=== PATIENT | male | born 1985 ===

== ENCOUNTER 2020-04-29 14:33 | Outpatient (CLI) | payer OTHER ==
[2020-04-29 15:52] VITALS: BP 130/91
--- NOTE | 2020-04-29 15:52 | SLEEP CARE CONSULTATION ---
Information from patient questionnaire entered by Flavia Serrano. I have reviewed and concur with the information entered by Flavia Serrano. This document represents the service I personally performed and the decisions made by me, Mily Wade ARNP. History of Present Illness Service Date and Time: 04/29/2020 1433 Reason for Visit: New patient Chief Complaint: reports: Unrefreshed sleep, Snoring, Excessive daytime sleepiness, Fatigue Date of Onset: 2 years Usual bedtime: 9 PM Time it takes to fall asleep: 5 minutes Snores at night: Yes Sleeps alone due to snoring: No Number of times waking at night: 0 Reasons for waking at night: reports: Snoring, Bathroom Toss, Turn, or Twitch while sleeping: Yes Recalls having dreams: No Usually gets out of bed at: 6 AM Feels refreshed in the morning: No Morning headache: Yes (1-2 times a month) Sleepy or fatigued during the day: Yes Ever fallen asleep while driving: No Takes day naps: Yes (he usually takes nap every other day; sleeps about 30-60 mins) Dreams during day naps: No Prior sleep studies: No Additional HPI information: I had the pleasure of seeing LOGAN STEVENS today regarding the possibility of him having a sleep disorder. His current complaints are unrefreshed sleep, snoring, excessive daytime sleepiness and fatigue. He has excessive tiredness during the day. He is not waking up refreshed. His has been pushing him to come in due to his loud snoring and states she can hear it from another room so she does not sleep separate from him. He feels he should not be this tired all the time. He has to drink a lot of caffeine drinks to keep awake and moving during the day. - Parasomnia Symptoms Ever been unable to move upon waking from sleep: Yes Walks in sleep: Yes (rarely) Talks in sleep: Yes Ever acted out dreams in sleep: Yes Ever felt weak in the knees when startled or emotional: No Bothered by creepy, crawly, restless sensations in legs: No Problems with memory or concentration: No Subjective Initial [place] Sleepiness Scale score: 10 (in 2020) Past Medical History Past Medical History: reports: Other (carpal tunnel). denies: Hypertension, Diabetes, Arrythmia, Anxiety, Depression, Mood disorder, GERD Social History The patient's occupation is active duty in the [employer]. Patient is and lives in [place]. Have you smoked in the past 12 months: Yes Cigarettes per day (20/pack): 10 Years of smokin Smoking Pack Years: 7.5 Alcohol use: Yes Alcohol amount and frequency: 2 drinks, less than twice monthly Caffeine use: Yes Caffeine amount and frequency: way too much Family History Family history of sleep disordered breathing: No Allergies and Home Medications Drug allergies reviewed: Yes (NKDA) Home medication list reviewed: Yes (Ibuprofen, prn for carpal tunnel) Review of Systems Cardiovascular: denies: high blood pressure Gastrointestinal: denies: heartburn, difficulty swallowing Neurological: denies: headaches, seizure, head trauma Psychiatric: denies: anxiety, depression, mood disorder Ear/Nose/Throat: reports: injury to nose (injury to nose when child; had septoplasty after difficulty breathing from nose in 2009). denies: tonsillectomy Physical Exam Blood Pressure: 130/91 Cuff size: wrist Heart Rate: 75 O2 Saturation: 97 Height: 6 ft 3 in Weight: 261 lb Body Mass Index: 32.6 BMI Classification: Obese Neck circumference: 18.30 (inches) Nostrils: partially obstructed Turbinates: swollen Septum: deviated right Mouth and throat: narrow oropharynx Uvula visualization: 50% Mallampati Class II Tongue: enlarged in size with teeth gallardo on lateral edges Tonsils: 2+ Chin and jaw: normal size and position Neck: normal w/o lymphadenopathy or thyromegaly Heart: regular rate and rhythm Lungs: clear bilaterally Impression and Plan 1. Suspected Obstructive Sleep Apnea-Hypopnea Syndrome, as suggested by a history of loud and irregular snoring, morning headache, unrefreshed sleep, and excessive daytime sleepiness. Narrow oropharynx and obesity are common predisposing factors for obstructive sleep apnea-hypopnea syndrome. I recommend proceeding to polysomnography to confirm the diagnosis and to assess severity. If the patient has significant sleep disordered breathing, a manual CPAP titration study will also be performed to find the optimal treatment pressure. I informed the patient of what the sleep studies involve and after some discussion, obtained agreement to proceed. The pathophysiology of obstructive sleep apnea-hypopnea syndrome was discussed with the patient and health risks of cardiovascular and cerebrovascular disease if not treated. AASM brochure for obstructive sleep apnea-hypopnea syndrome given and reviewed. Risks of drowsy driving discussed in detail and patient advised to avoid long distance driving and to pack puller at the first sign of drowsiness. Patient agreed to plan. * Schedule polysomnography +- manual CPAP titration study and return in 1-2 weeks after the study to discuss result and initiate therapy. * Avoid long distance driving or driving when feeling sleepy. * Avoid alcohol, sedative and muscle relaxant around bedtime. * Attempt to lose weight. * Review instructions provided by trained office staff on how to prepare for the sleep study. * Return for follow-up after sleep study completed. Counseling Topics: Weight loss health impact Visit Type: In Office Time Spent with Patient (minutes): 30 Provider Statement: I spent 100% of the Face to Face Visit with the patient with greater than 50% spent counseling the patient and coordination of care.
== END 2020-04-29 14:34 | disposition home or self-care (01) ==
LOC: SC 14:33
PROVIDERS: ATTEND Nurse Practitioner Family
DX: R06.83 Snoring (principal); R51.9 Headache, unspecified; G47.8 Other sleep disorders; G47.10 Hypersomnia, unspecified; E66.9 Obesity, unspecified; Z68.32 Body mass index [BMI] 32.0-32.9, adult
CPT/HCPCS: 99203; 99212

== ENCOUNTER 2020-06-24 21:22 | Emergency (ER) | payer OTHER ==
--- NOTE | 2020-06-24 22:03 | XRAY Report ---
PROCEDURE: Ankle 3 View RT INDICATIONS: injury to R ankle/stepped in hole, swollen R ankle TECHNIQUE: 3 views of the ankle were acquired. COMPARISON: None. FINDINGS: Bones: No fractures or dislocations. Ankle mortise is normally aligned. No suspicious bony lesions . Soft tissues: No tibiotalar joint effusion. Achilles tendon appears normal. Swelling at the lateral malleolus. IMPRESSION: No acute osseous abnormality. Reviewed by: Maury Quiroz MD on 06/24/2020 10:02 PM PDT Approved by: Maury Quiroz MD on 06/24/2020 10:02 PM PDT Station ID: [id number]
[2020-06-25 01:23] VITALS: BP 133/87
--- NOTE | 2020-06-26 11:49 | ED Physician Documentation ---
History of Present Illness - Stated complaint Stated Complaint: R ANKLE INJ - Chief complaint Chief Complaint: Trauma Ext - History obtained from History obtained from: Patient - Additonal information Additional information: 35yM presents with R ankle pain s/p trip and fall into a lower part of ground, twisting it. sudden onset constant pain, concentrated in the lateral ankle, nonradiating, moderate severity, worse with rom of the ankle. patient was able to bear partial weight initially and now. no other injury. minimal to mild swelling. Review of Systems Skin: denies: Lesions, Abrasion (s), Laceration (s) Musculoskeletal: reports: Extremity pain, Joint pain Neurologic: denies: Focal weakness, Numbness PD PAST MEDICAL HISTORY - Past Medical History Past Medical History: No - Past Surgical History Past Surgical History: Yes HEENT: Other Derm: Skin cancer surgery - Present Medications Home Medications: Ambulatory Orders Medication Instructions Recorded Confirmed No Known Home Medications 06/24/20 06/24/20 - Allergies Allergies/Adverse Reactions: Allergies Allergy/AdvReac Type Severity Reaction Status Date / Time No Known Drug Allergies Allergy Verified 06/24/20 21:36 - Social History Does the pt smoke?: Yes Smoking Status: Current every day smoker PD ED PE NORMAL - Vitals Vital signs reviewed: Yes - General General: Alert and oriented X 3, No acute distress, Well developed/nourished - Derm Derm: Normal color, Warm and dry - Extremities Extremities: No deformity, Other (FROM but tender with rom of R ankle. nontender to lateral or medial malleolus or fifth metatarsal. discomfort to palpation along lateral ankle in a tendinous distribution. 2+ DP and PT pulses, sensation and strength intact.) - Neuro Neuro: Alert and oriented X 3 Results - Vitals Vitals: Oxygen O2 Source Room air PD MEDICAL DECISION MAKING - ED course ED course: 35yM presents with likely ankle sprain. low suspicion of fracture given xray and clinical exam. splint and crutches supplied. return precautions given. [place] Departure - Departure Disposition: 01 Home, Self Care Clinical Impression: Ankle sprain Condition: Good Instructions: ED RICE Follow-Up: Chris Stoll MD [Provider Admit Priv/Credential] - Comments: You were seen in the emergency department for ankle pain.Does not look like you have a break in the bone. Please return to emergency department if you have any new or worsening symptoms. Follow-up with orthopedics in 1 week. Discharge Date/Time: 06/24/20 23:25
== END 2020-06-24 23:25 | disposition home or self-care (01) ==
LOC: ED 21:22
DX: S93.401A Sprain of unspecified ligament of right ankle, initial encounter (principal); W01.0XXA Fall on same level from slipping, tripping and stumbling without subsequent striking against object, initial encounter; X50.1XXA Overexertion from prolonged static or awkward postures, initial encounter; Y93.89 Activity, other specified; F17.200 Nicotine dependence, unspecified, uncomplicated
CPT/HCPCS: 99282; 99283

== ENCOUNTER 2020-09-16 19:20 | Outpatient (CLI) | payer OTHER | END 2020-09-16 19:21 | disposition home or self-care (01) | LOC: SC 19:20 | PROVIDERS: ATTEND Nurse Practitioner Family | DX: R06.83 Snoring (principal); R53.83 Other fatigue; G47.8 Other sleep disorders; G47.10 Hypersomnia, unspecified; E66.9 Obesity, unspecified; Z68.33 Body mass index [BMI] 33.0-33.9, adult | CPT/HCPCS: 95810 ==

== ENCOUNTER 2020-09-30 15:30 | Outpatient (CLI) | payer OTHER ==
--- NOTE | 2020-09-30 16:13 | SLEEP CARE CONSULTATION ---
Information from patient questionnaire entered by Flavia Serrano. I have reviewed and concur with the information entered by Flavia Serrano. This document represents the service I personally performed and the decisions made by , Mily Wade ARNP. History of Present Illness Service Date and Time: 09/30/2020 1530 Initial [place] Sleepiness Scale score: 10 (in 2020) Current [place] Sleepiness Scale score: 14 Additional HPI information: LOGAN STEVENS returns for follow up and results of the recently performed polysomnography. The patient was informed of the following findings: Patient had no significant sleep disordered breathing with an average AHI 2.9 and a farhana oxygen saturation of 90%. I explained the pathophysiology behind obstructive sleep apnea. Patient does not have sleep apnea and was advised how weight gain could increase the risk of developing sleep apnea in the future. I strongly encouraged the patient to lose weight. Patient has light to loud snoring. Snoring can be reduced by weight loss. Weight loss is best achieved with diet consult. Patient instructed to contact PCP for referral. Snoring can also be treated with an oral appliance from a dentist. Advised to check insurance coverage. In addition, an ENT evaluation can be do to see if other treatment is indicated. Patient counseled not drink alcohol less than 4 hours before bedtime as it can increase snoring and apnea. Patient was cautioned about risks of drowsy driving until sleepiness symptoms resolve. Sleep Study - Results Type of Sleep Study: Polysomnography Prior sleep studies: No Polysomnography/Home Sleep Study results: IMPRESSION: The quality of the study is good. The patient had normal sleep efficiency. The sleep architecture was normal as well. Respiratory monitoring showed no significant sleep disordered breathing (AHI = 2.9) or hypoxia (farhana oxygen saturation of 90%). The few respiratory events occurred mainly during supine sleep (supine AHI = 4.7; non-supine = 0.75). Snore was light to loud in intensity. There was no significant periodic leg movement of sleep. Cardiac rhythm was normal sinus rhythm without significant arrhythmia. No abnormal behavior (parasomnia) observed during the night. CONCLUSIONS and RECOMMENDATIONS: 1. This is a normal in-laboratory polysomnography. Clinical correlation advised. Allergies and Home Medications Home medication list reviewed: Yes (no changes) Review of Systems Review of systems same as previous: Yes (no changes) Physical Exam Heart Rate: 73 O2 Saturation: 97 Height: 6 ft 2 in Weight: 265 lb Body Mass Index: 34.0 BMI Classification: Obese Impression and Plan Snoring but no significant sleep disordered breathing. Patient advised that often weight loss will reduce snoring as well as apnea risk. An oral appliance can also be used for snoring. This would require a dental consultation. Patient cautioned not to use other online appliances as can cause bite issues. A list of accredited dentists in [facility] and one local dentist who makes oral appliances is available in the office. Patient is advised to check if insurance will cover. An ENT consult can also be helpful to determine if any other treatment is an option. Patient given a AASM How to Sleep better pamphlet and encouraged to review his sleep hygiene to find ways to improve sleep and reduce daytime sleepiness. Since patient supine AHI was 4.7 he was encouraged to avoid sleeping supine. He voiced understanding. * Attempt to lose weight * Avoid alcohol consumption near bedtime * The patient is cautioned about driving until sleepiness is completely resolved. * Return as needed. Counseling Topics: Weight loss health impact Visit Type: In Office Time Spent with Patient (minutes): 10 Provider Statement: I spent 100% of the Face to Face Visit with the patient with greater than 50% spent counseling the patient and coordination of care.
== END 2020-09-30 15:31 | disposition home or self-care (01) ==
LOC: SC 15:30
PROVIDERS: ATTEND Nurse Practitioner Family
DX: R06.83 Snoring (principal); E66.9 Obesity, unspecified; Z68.34 Body mass index [BMI] 34.0-34.9, adult
CPT/HCPCS: 99212

== ENCOUNTER 2021-01-10 13:41 | Emergency (ER) | payer OTHER ==
[2021-01-10 14:05] VITALS: BP 117/79
[2021-01-10] MEDS ORDERED: diphenhydrAMINE INJ 50 MG/ML VIAL IVP STA (14:35)
[2021-01-10] MEDS ORDERED: SODIUM CHLORIDE 0.9% 1,000 ML IV STA (14:35)
[2021-01-10] MEDS ORDERED: PROCHLORPERAZINE 10 MG/2 ML VIAL IVP STA (14:35)
[2021-01-10] MEDS ORDERED: KETOROLAC 30 MG/ML VIAL IVP STA (14:35)
[2021-01-10] MEDS ORDERED: DEXAMETHASONE 10 MG/ML VIAL IVP STA (14:35)
--- NOTE | 2021-01-10 14:36 | ED Physician Documentation ---
PD HPI HEADACHE - Stated complaint Stated Complaint: HEADACHE - Chief complaint Chief Complaint: Neuro - History obtained from History obtained from: Patient - History of Present Illness Timing - onset: Today Timing - onset during: Rest Timing - duration: Hours Timing - details: Abrupt onset, Still present Location: Front, Right Quality: Throbbing Associated symptoms: Nausea, Vision changes (photophobia). No: Fever, Stiff neck, Vomiting, Weakness, Numbness, Syncope, Seizure, Eye pain Improved by: Rest, Dark room, Quiet Worsened by: Light, Noise, Moving Contributing factors: No: Anticoagulated, Possible carbon monoxide Similar symptoms before: Diagnosis (migraine) Recently seen: Not recently seen - Additional information Additional information: Previously well 35-year-old male has developed a headache behind his right eye and his right latter-day with some nausea has not had vomiting with this he states that he does feel like he has seen an aura with this and he has a history of migraine. He did not have relief with use of ibuprofen. Review of Systems Constitutional: denies: Fever Eyes: denies: Decreased vision Ears: denies: Ear pain Nose: denies: Congestion Throat: denies: Sore throat Cardiac: denies: Chest pain / pressure, Palpitations Respiratory: denies: Dyspnea, Cough GI: reports: Nausea. denies: Abdominal Pain, Vomiting, Constipation, Diarrhea : denies: Dysuria, Frequency Skin: denies: Rash Musculoskeletal: denies: Neck pain, Back pain, Extremity pain Neurologic: reports: Headache. denies: Generalized weakness, Focal weakness, Numbness, Syncope, Seizure, Confused, Head injury, LOC PD PAST MEDICAL HISTORY - Past Medical History Past Medical History: Yes Cardiovascular: None Respiratory: None Neuro: Headaches Endocrine/Autoimmune: None GI: None : None HEENT: None Psych: Depression Musculoskeletal: None Derm: None - Past Surgical History Past Surgical History: Yes HEENT: Other Derm: Skin cancer surgery - Present Medications Home Medications: Ambulatory Orders Medication Instructions Recorded Confirmed Ibuprofen 400 mg PO Q6HR PRN 01/10/21 01/10/21 - Allergies Allergies/Adverse Reactions: Allergies Allergy/AdvReac Type Severity Reaction Status Date / Time No Known Drug Allergies Allergy Verified 01/10/21 13:47 - Social History Does the pt smoke?: Yes Smoking Status: Current every day smoker Does the pt drink ETOH?: No Does the pt have substance abuse?: No - Immunizations Immunizations are current?: Yes PD ED PE NORMAL - Vitals Vital signs reviewed: Yes - General General: Alert and oriented X 3, Well developed/nourished, Other (35-year-old male laying in a darkened room with an ice bag over his head and his eyes closed with a blanket over everything.) - HEENT HEENT: Atraumatic, PERRL, EOMI - Neck Neck: Supple, no meningeal sign, No bony TTP - Cardiac Cardiac: RRR, No murmur - Respiratory Respiratory: No respiratory distress, Clear bilaterally - Abdomen Abdomen: Soft, Non tender - Back Back: No CVA TTP, No spinal TTP - Derm Derm: Normal color, Warm and dry, No rash - Extremities Extremities: No deformity, No edema - Neuro Neuro: Alert and oriented X 3, cashier parking lot 2-12 intact, No motor deficit, No sensory deficit, Normal speech Eye Opening: To Voice Motor: Obeys Commands Verbal: Oriented GCS Score: 14 - Psych Psych: Normal mood, Normal affect Results - Vitals Vitals: Vital Signs - 24 hr 01/10/21 01/10/21 13:48 14:04 Temperature 36 C L 36.6 C Heart Rate 69 74 Respiratory 18 18 Rate Blood Pressure 122/102 H 117/79 O2 Saturation 98 99 Oxygen O2 Source Room air PD MEDICAL DECISION MAKING - ED course Complexity details: reviewed old records, reviewed results, re-evaluated patient, considered differential, d/w patient ED course: 35-year-old male with an acute migraine headache is given a migraine cocktail consisting of a liter of saline 10 mg of dexamethasone 10 mg of Compazine 25 mg of Benadryl and 30 mg of Toradol intravenously. The patient has improvement and he is discharged. Departure - Departure Disposition: 01 Home, Self Care Clinical Impression: Migraine Qualifiers: Migraine type: with aura Status migrainosus presence: without status migrainosus Intractability: not intractable Qualified Code(s): G43.109 - Migraine with aura, not intractable, without status migrainosus Condition: Stable Instructions: ED Headache Migraine Follow-Up: HERNANDEZ Beaulieu [Provider Group] Discharge Date/Time: 01/10/21 16:08
== END 2021-01-10 16:08 | disposition home or self-care (01) ==
LOC: ED 13:41
DX: G43.109 Migraine with aura, not intractable, without status migrainosus (principal); F17.200 Nicotine dependence, unspecified, uncomplicated
CPT/HCPCS: 96374; 96375; 99284; 99285; J1200

== ENCOUNTER 2021-01-17 19:11 | Emergency (ER) | payer OTHER ==
[2021-01-17 19:18] VITALS: BP 141/86
[2021-01-17] MEDS ORDERED: KETOROLAC 60 MG/2 ML VIAL IM STA (19:26)
[2021-01-17] MEDS ORDERED: diphenhydrAMINE INJ 50 MG/ML VIAL IM STA (19:26)
[2021-01-17] MEDS ORDERED: PROMETHAZINE 25 MG/1 ML VIAL IM STA (19:26)
[2021-01-17] MEDS ORDERED: SUMAtriptan 6 MG/0.5 ML VIAL SUBQ STA (20:47)
[2021-01-17] MEDS ORDERED: BUTALB/ACETAM/CAFF 50/325/40MG TABLET PO STA (20:48)
--- NOTE | 2021-01-17 21:25 | ED Physician Documentation ---
PD HPI HEADACHE - Stated complaint Stated Complaint: MIGRAINE,NAUSEA - Chief complaint Chief Complaint: Neuro - History obtained from History obtained from: Patient - History of Present Illness Timing - onset: Today Location: Front, Right Quality: Throbbing, Aching, Other (gradual onset) Associated symptoms: No: Fever, Stiff neck, Nausea, Vomiting, Weakness, Numbness Improved by: Rest, Dark room Worsened by: Light, Noise Contributing factors: No: Anticoagulated, Possible carbon monoxide, Hypertension, Recent illness, Trauma - Additional information Additional information: 35-year-old male with a headache today. Started earlier this afternoon. Took a dose of ibuprofen earlier without relief. States similar to prior migraines. Has light and sound sensitivity. States has headaches like this probably 1-2 times per month. Not on any migraine medications at home. No vomiting. No trauma. No seizures. No fevers. No recent illnesses Review of Systems Constitutional: denies: Fever, Chills Eyes: reports: Photophobia Ears: denies: Ear pain Nose: denies: Rhinorrhea / runny nose, Congestion Respiratory: denies: Cough GI: denies: Abdominal Pain, Nausea, Vomiting, Diarrhea Skin: denies: Rash Musculoskeletal: denies: Neck pain, Back pain Neurologic: denies: Head injury PD PAST MEDICAL HISTORY - Past Medical History Past Medical History: Yes Cardiovascular: None Respiratory: None Neuro: Headaches Endocrine/Autoimmune: None GI: None : None HEENT: None Psych: Depression Musculoskeletal: None Derm: None - Past Surgical History Past Surgical History: Yes HEENT: Other Derm: Skin cancer surgery - Present Medications Home Medications: Ambulatory Orders Medication Instructions Recorded Confirmed Ibuprofen 400 mg PO Q6HR PRN 01/10/21 01/17/21 Butalb/Acetaminophen/Caffeine 1 cap PO Q6H PRN #10 cap 01/17/21 [Fioricet 50-300-40 mg Capsule] - Allergies Allergies/Adverse Reactions: Allergies Allergy/AdvReac Type Severity Reaction Status Date / Time No Known Drug Allergies Allergy Verified 01/17/21 19:15 - Social History Does the pt smoke?: Yes Smoking Status: Current every day smoker Does the pt drink ETOH?: No Does the pt have substance abuse?: No - Immunizations Immunizations are current?: Yes - POLST Patient has POLST: No PD ED PE NORMAL - Vitals Vital signs reviewed: Yes - General General: Alert and oriented X 3, No acute distress - HEENT HEENT: Atraumatic, PERRL, EOMI, Moist mucous membranes - Neck Neck: Supple, no meningeal sign - Cardiac Cardiac: RRR - Respiratory Respiratory: No respiratory distress, Clear bilaterally - Abdomen Abdomen: Soft, Non tender, Non distended - Derm Derm: Warm and dry - Extremities Extremities: No edema - Neuro Neuro: Alert and oriented X 3, patient observer 2-12 intact, No motor deficit, No sensory deficit, Normal speech - Psych Psych: Normal mood, Normal affect Results - Vitals Vitals: Vital Signs - 24 hr 01/17/21 19:15 Temperature 36.1 C L Heart Rate 73 Respiratory 18 Rate Blood Pressure 141/86 H O2 Saturation 98 Oxygen O2 Source Room air PD MEDICAL DECISION MAKING - ED course Complexity details: reviewed old records, considered differential, d/w patient ED course: 35-year-old male with his usual migraine headache. No evidence of subarachnoid hemorrhage. No indication for imaging. Headache resolved with Toradol, Fioricet, Imitrex, Phenergan and Benadryl. Feels much better. We will have him follow-up with his doctor for further care. Will prescribe Fioricet for home. Patient counseled regarding signs and symptoms for which I believe and urgent re-evaluation would be necessary. Patient with good understanding of and agreement to plan and is comfortable going home at this time This document was made in part using voice recognition software. While efforts are made to proofread this document, sound alike and grammatical errors may occur. Departure - Departure Disposition: 01 Home, Self Care Clinical Impression: Migraine Qualifiers: Migraine type: unspecified Status migrainosus presence: without status m igrainosus Intractability: not intractable Qualified Code(s): G43.909 - Migraine, unspecified, not intractable, without status migrainosus Condition: Good Instructions: ED Headache Migraine Follow-Up: MARISSA POWERS MD [Primary Care Provider] - Within 1 week Prescriptions: Butalb/Acetaminophen/Caffeine [Fioricet 50-300-40 mg Capsule] 1 cap PO Q6H PRN #10 cap PRN Reason: headache Comments: Please follow-up with your doctor for further care. Return if you worsen. A prescription for Fioricet has been sent to the [facility] for you. Please speak with your doctor about headache medications for home.
== END 2021-01-17 21:50 | disposition home or self-care (01) ==
LOC: ED 19:11
DX: G43.909 Migraine, unspecified, not intractable, without status migrainosus (principal); F17.200 Nicotine dependence, unspecified, uncomplicated
CPT/HCPCS: 96372; 99284; 99285; A9270; J1200

== ENCOUNTER 2021-03-14 05:00 | Emergency (ER) | payer OTHER ==
--- NOTE | 2021-03-14 05:58 | ED Physician Documentation ---
<Yair Carrera - Last Filed: 03/14/21 05:58> PD HPI HEADACHE - Stated complaint Stated Complaint: FEVER, MIGRANE, CHILLS - Chief complaint Chief Complaint: Heent PD PAST MEDICAL HISTORY - Past Medical History Past Medical History: Yes Cardiovascular: None Respiratory: None Neuro: Headaches, Migraines Endocrine/Autoimmune: None GI: None : None HEENT: None Psych: Depression Musculoskeletal: None Derm: None - Past Surgical History Past Surgical History: Yes HEENT: Other Derm: Skin cancer surgery - Present Medications Home Medications: Ambulatory Orders Medication Instructions Recorded Confirmed Ibuprofen 400 mg PO Q6HR PRN 01/10/21 01/17/21 Butalb/Acetaminophen/Caffeine 1 cap PO Q6H PRN #10 cap 01/17/21 03/14/21 [Fioricet 50-300-40 mg Capsule] - Allergies Allergies/Adverse Reactions: Allergies Allergy/AdvReac Type Severity Reaction Status Date / Time No Known Drug Allergies Allergy Verified 03/14/21 05:16 - Social History Does the pt smoke?: Yes Smoking Status: Current every day smoker Does the pt drink ETOH?: No Does the pt have substance abuse?: No - Immunizations Immunizations are current?: Yes - POLST Patient has POLST: No Departure - Departure Disposition: 01 Home, Self Care Clinical Impression: Viral syndrome Migraine Qualifiers: Migraine type: unspecified Status migrainosus presence: without status migrainosus Intractability: not intractable Qualified Code(s): G43.909 - Migraine, unspecified, not intractable, without status migrainosus Condition: Good Instructions: ED Viral Syndrome Follow-Up: Your,doctor in 1 week [Other] Comments: Drink plenty of fluids and rest. Return if you worsen. You have a Covid test pending. You need to self quarantine until the result is done and negative. The results should be done in 24-48 hours. We will call with a positive result, the fastest way to get a negative result for confirmation though is to go to the hospital website at [email or web address], click on the my [facility] tab and sign up for the patient portal. If any of your friends and/or family need to be tested, they can call the hospital at [phone] for an appointment to have their Covid test. <Ray Simms Last Filed: 03/14/21 09:49> PD HPI HEADACHE - History obtained from History obtained from: Patient - History of Present Illness Timing - onset: Last night Timing - onset during: Rest Timing - duration: Days (1) Timing - details: Gradual onset Pain level max: 8 Pain level now: 8 Location: Front Quality: Throbbing, Aching Associated symptoms: Fever (states fever last night). No: Stiff neck, Nausea, Vomiting, Weakness, Numbness, Syncope, Seizure, Eye pain, Vision changes Improved by: Rest Worsened by: Light, Noise Similar symptoms before: Diagnosis (has chronic migraines and states this feels similar) - Additional information Additional information: Patient is a 36-year-old male who presents to the emergency department complaining of body aches, migraine, chills. Has had Covid vaccinations. Review of Systems Constitutional: reports: Fever Throat: denies: Sore throat Respiratory: denies: Cough GI: denies: Abdominal Pain, Vomiting, Diarrhea Skin: denies: Rash Musculoskeletal: denies: Neck pain, Back pain Neurologic: denies: Headache PD PAST MEDICAL HISTORY - Past Medical History Past Medical History: Yes Neuro: Headaches, Migraines Psych: Depression - Past Surgical History Past Surgical History: Yes Derm: Skin cancer surgery - Social History Does the pt smoke?: Yes Smoking Status: Current every day smoker Does the pt drink ETOH?: No Does the pt have substance abuse?: No - Immunizations Immunizations are current?: Yes PD ED PE NORMAL - Vitals Vital signs reviewed: Yes - General General: Alert and oriented X 3, No acute distress, Well developed/nourished - HEENT HEENT: PERRL, Ears normal, Moist mucous membranes, Pharynx benign - Neck Neck: Supple, no meningeal sign, Other (FROM without pain) - Cardiac Cardiac: RRR, Strong equal pulses - Respiratory Respiratory: No respiratory distress, Clear bilaterally - Abdomen Abdomen: Soft, Non tender, Non distended - Derm Derm: Warm and dry - Extremities Extremities: No edema, No calf tenderness / cord - Neuro Neuro: Alert and oriented X 3, rn registry 2-12 intact, No motor deficit, No sensory deficit, Normal speech Eye Opening: Spontaneous Motor: Obeys Commands Verbal: Oriented GCS Score: 15 - Psych Psych: Normal mood, Normal affect Results - Vitals Vitals: Vital Signs - 24 hr 03/14/21 05:13 Temperature 38.1 C H Heart Rate 100 Respiratory 18 Rate Blood Pressure 116/78 O2 Saturation 96 Oxygen O2 Source Room air PD MEDICAL DECISION MAKING - ED course Complexity details: reviewed results, re-evaluated patient, considered differential, d/w patient ED course: Patient is well-appearing, nontoxic. Feels better after Toradol, Phenergan and Imitrex. Lungs are clear to auscultation bilaterally. No evidence of sepsis. We will have him follow-up with his doctor for further care. No indication for further testing at this time. Covid testing was performed. Patient counseled regarding signs and symptoms for which I believe and urgent re-evaluation would be necessary. Patient with good understanding of and agreement to plan and is comfortable going home at this time This document was made in part using voice recognition software. While efforts are made to proofread this document, sound alike and grammatical errors may occur.
[2021-03-14] MEDS ORDERED: KETOROLAC 60 MG/2 ML VIAL IM STA (07:42)
[2021-03-14] MEDS ORDERED: PROCHLORPERAZINE 10 MG/2 ML VIAL IM STA (07:43)
[2021-03-14] MEDS ORDERED: diphenhydrAMINE INJ 50 MG/ML VIAL IM STA (07:43)
[2021-03-14] MEDS ORDERED: SUMAtriptan 6 MG/0.5 ML VIAL SUBQ STA (08:52)
[2021-03-14 09:58] VITALS: BP 112/70
== END 2021-03-14 10:10 | disposition home or self-care (01) ==
LOC: ED 05:00
DX: U07.1 COVID-19 (principal); G43.909 Migraine, unspecified, not intractable, without status migrainosus; F17.200 Nicotine dependence, unspecified, uncomplicated
CPT/HCPCS: 87635; 96372; 99283; J1200

== ENCOUNTER 2021-05-04 20:00 | Emergency (ER) | payer OTHER ==
[2021-05-04] MEDS ORDERED: KETOROLAC 60 MG/2 ML VIAL IM STA (20:48)
[2021-05-04] MEDS ORDERED: diphenhydrAMINE INJ 50 MG/ML VIAL IM STA (20:49)
[2021-05-04] MEDS ORDERED: DROPERIDOL 5 MG/2 ML VIAL IM STA (20:49)
--- NOTE | 2021-05-04 21:52 | ED Physician Documentation ---
History of Present Illness - Stated complaint Stated Complaint: MIGRAINE - Chief complaint Chief Complaint: General - History obtained from History obtained from: Patient - History of Present Illness Timing: Today Pain level max: 10 Pain level now: 10 - Additonal information Additional information: 36-year-old male with chronic migraine headaches. States he has his usual migraine headache but it was not relieved by Imitrex. These headaches occur about every 2 months which caused him to seek care in the emergency department. He has a referral to neurology, but is unsure when the appointment will be. No fevers. No trauma. No loss of bowel or bladder control. No vomiting. Review of Systems Constitutional: denies: Fever, Chills Eyes: reports: Photophobia Respiratory: denies: Cough GI: denies: Nausea, Vomiting, Diarrhea Skin: denies: Rash Musculoskeletal: denies: Neck pain, Back pain Neurologic: reports: Head injury (Generalized, holoacranial, throbbing, gradual onset) PD PAST MEDICAL HISTORY - Past Medical History Cardiovascular: None Respiratory: None Neuro: Headaches, Migraines Endocrine/Autoimmune: None GI: None : None HEENT: None Psych: Depression Musculoskeletal: None Derm: None - Past Surgical History Past Surgical History: Yes HEENT: Other Derm: Skin cancer surgery - Present Medications Home Medications: Ambulatory Orders Medication Instructions Recorded Confirmed Ibuprofen 400 mg PO Q6HR PRN 01/10/21 01/17/21 Butalb/Acetaminophen/Caffeine 1 cap PO Q6H PRN #10 cap 01/17/21 03/14/21 [Fioricet 50-300-40 mg Capsule] - Allergies Allergies/Adverse Reactions: Allergies Allergy/AdvReac Type Severity Reaction Status Date / Time No Known Drug Allergies Allergy Verified 05/04/21 20:07 - Social History Does the pt smoke?: Yes Smoking Status: Current every day smoker Does the pt drink ETOH?: No Does the pt have substance abuse?: No - Immunizations Immunizations are current?: Yes - POLST Patient has POLST: No PD ED PE NORMAL - Vitals Vital signs reviewed: Yes - General General: Alert and oriented X 3, No acute distress, Well developed/nourished - HEENT HEENT: Atraumatic, PERRL, Moist mucous membranes - Neck Neck: Supple, no meningeal sign - Cardiac Cardiac: RRR, Strong equal pulses - Respiratory Respiratory: No respiratory distress, Clear bilaterally - Abdomen Abdomen: Soft, Non tender, Non distended - Derm Derm: Warm and dry - Extremities Extremities: No edema, No calf tenderness / cord - Neuro Neuro: Alert and oriented X 3, competitive athlete 2-12 intact, No motor deficit, No sensory deficit, Normal speech Eye Opening: Spontaneous Motor: Obeys Commands Verbal: Oriented GCS Score: 15 - Psych Psych: Normal mood, Normal affect Results - Vitals Vitals: Vital Signs - 24 hr 05/04/21 05/04/21 05/04/21 20:02 22:07 22:26 Temperature 36 C L Heart Rate 88 67 70 Respiratory 18 16 14 Rate Blood Pressure 132/82 H 103/64 O2 Saturation 98 98 98 Oxygen O2 Source Room air PD MEDICAL DECISION MAKING - ED course Complexity details: reviewed results, re-evaluated patient, considered differential, d/w patient ED course: 36-year-old male with his usual migraine headache. Feels much better after Toradol, droperidol and Benadryl. Headache resolved and he request to go home and sleep. He will follow up with his doctor for further care. No evidence of tumor, mass, subarachnoid hemorrhage. Patient counseled regarding signs and symptoms for which I believe and urgent re-evaluation would be necessary. Patient with good understanding of and agreement to plan and is comfortable going home at this time This document was made in part using voice recognition software. While efforts are made to proofread this document, sound alike and grammatical errors may occur. Departure - Departure Disposition: 01 Home, Self Care Clinical Impression: Migraine Qualifiers: Migraine type: unspecified Status migrainosus presence: without status migrainosus Intractability: not intractable Qualified Code(s): G43.909 - Migraine, unspecified, not intractable, without status migrainosus Condition: Good Instructions: ED Headache Migraine Follow-Up: MARISSA POWERS MD [Primary Care Provider] - Within 1 week Comments: You are not to drive tonight. Please go home and rest. Return if you worsen. Follow-up with your doctor for further care. Discharge Date/Time: 05/04/21 22:26
[2021-05-04 22:08] VITALS: BP 103/64
== END 2021-05-04 22:26 | disposition home or self-care (01) ==
LOC: ED 20:00
DX: G43.909 Migraine, unspecified, not intractable, without status migrainosus (principal); F17.200 Nicotine dependence, unspecified, uncomplicated
CPT/HCPCS: 96372; 99283; 99284; J1200

== ENCOUNTER 2022-01-25 11:00 | Outpatient (CLI) | payer OTHER ==
--- NOTE | 2022-01-25 15:17 | MRI Report ---
PROCEDURE: CERVICAL SPINE WO INDICATIONS: BILATERAL WRIST AND HAND PAIN TECHNIQUE: Noncontrast sagittal T1 spin echo and T2 fast spin echo, sagittal STIR, foraminal oblique sagittal T2 fast spin echo, and axial gradient echo or T2 fast spin echo through the cervical spine. COMPARISON: None. FINDINGS: Facet and uncovertebral hypertrophy combine to produce mild neural foraminal narrowing bilaterally at C3-C4, C4-C5, and C5-C6. No spinal canal stenosis. No cord signal abnormality. Normal cervical spine vertebral body height and alignment. No suspicious focal marrow signal abnormality or bone marrow ed angel. Regional soft tissues are normal. IMPRESSION: Mild neural foraminal narrowing from C3-C4 through C5-C6. Reviewed by: Corey Bryant MD on 01/25/2022 3:15 PM PST Approved by: Corey Bryant MD on 01/25/2022 3:15 PM PST Station ID: [id number]
== END 2022-01-25 11:01 | disposition home or self-care (01) ==
LOC: DI 11:00
PROVIDERS: ATTEND Orthopaedic Surgery
DX: M47.812 Spondylosis without myelopathy or radiculopathy, cervical region (principal); M48.02 Spinal stenosis, cervical region

== ENCOUNTER 2022-02-05 13:48 | Outpatient (CLI) | payer OTHER ==
--- NOTE | 2022-02-05 16:54 | MRI Report ---
PROCEDURE: LUMBAR SPINE WO INDICATIONS: LOW BACK PAIN TECHNIQUE: Noncontrast sagittal T1 spin echo and T2 fast echo, sagittal STIR, axial T1 and T2 fast spin echo thr ough the lumbar spine. In cases with scoliosis, additional coronal T2 fast spin echo may be performe d. COMPARISON: None. FINDINGS: Image quality: Excellent. Alignment and Curvature: No plain films are available for comparison. Thus, for numbering purposes, 5 lumbar type vertebral bodies will be presumed for the current report. This should be confirmed with plain film correlation prior to any lumbar spinal intervention. There is normal bony alignment. Bone Marrow: Marrow is of normal overall signal. No acute vertebral body compression fractures. Spinal Cord: Conus medullaris terminates at the mid L1 level. Visualized cord demonstrates normal s ignal and size. Paraspinous Soft Tissues: No paravertebral masses. T12-L1: Normal in appearance. L1-L2: Normal in appearance. L2-L3: Normal in appearance. L3-L4: Normal in appearance. L4-L5: Normal in appearance. L5-S1: Normal in appearance. IMPRESSION: No significant canal, nor foraminal stenosis. No neural impingement. Reviewed by: Lucio García MD on 02/05/2022 4:52 PM PST Approved by: Lucio García MD on 02/05/2022 4:52 PM PST Station ID: [id number]
== END 2022-02-05 13:49 | disposition home or self-care (01) ==
LOC: DI 13:48
DX: M54.50 Low back pain, unspecified (principal)

== ENCOUNTER 2022-02-13 08:27 | Emergency (ER) | payer OTHER ==
--- NOTE | 2022-02-13 10:59 | ED Physician Documentation ---
PD HPI HEADACHE - Stated complaint Stated Complaint: HEAD PX - Chief complaint Chief Complaint: Neuro - History obtained from History obtained from: Patient - History of Present Illness Timing - onset: Last night Timing - duration: Hours (4-5) Timing - details: Gradual onset, Still present Worst headache ever?: No: Worst headache ever? (He states headache is similar to his prior migraines. He tried his usual sumatriptan without any improvement after 2 doses. This works about 4 out of 5 times for him. He states he gets ab out currently 6-8 migraines a month.) Location: Left, Global Quality: Throbbing, Aching Associated symptoms: No: Fever Improved by: No: Rest, Meds Contributing factors: No: Hypertension, Recent illness, Trauma Similar symptoms before: Diagnosis (migraines, which have increased in frequency gradually. currently getting 6-8 per month. Imitrex works most of the time though.) Recently seen: Not recently seen Review of Systems Constitutional: denies: Fever, Chills Nose: denies: Rhinorrhea / runny nose, Congestion Throat: denies: Sore throat Respiratory: denies: Cough Skin: denies: Rash, Lesions Neurologic: reports: Headache. denies: Focal weakness, Numbness, Altered mental status, Head injury PD PAST MEDICAL HISTORY - Past Medical History Cardiovascular: None Respiratory: None Neuro: Headaches, Migraines Endocrine/Autoimmune: None GI: None : None HEENT: None Psych: Depression Musculoskeletal: None Derm: None - Past Surgical History Past Surgical History: Yes HEENT: Other Derm: Skin cancer surgery - Present Medications Home Medications: Ambulatory Orders Medication Instructions Recorded Confirmed Ibuprofen 400 mg PO Q6HR PRN 01/10/21 02/13/22 Butalb/Acetaminophen/Caffeine 1 cap PO Q6H PRN #10 cap 01/17/21 02/13/22 [Fioricet 50-300-40 mg Capsule] Amitriptyline [Elavil] 25 mg PO HS 30 Days #30 tablet 02/13/22 Fluticasone [Flonase] 1 sprays HERNANDEZ DAILY 02/13/22 02/13/22 Omeprazole Magnesium 20 mg PO DAILY 02/13/22 02/13/22 Ondansetron Odt [Zofran] 4 mg TL Q6H PRN #10 tablet 02/13/22 Sumatriptan Succinate [Imitrex] 50 mg PO DAILY PRN 02/13/22 02/13/22 - Allergies Allergies/Adverse Reactions: Allergies Allergy/AdvReac Type Severity Reaction Status Date / Time No Known Drug Allergies Allergy Verified 05/04/21 20:07 - Social History Does the pt smoke?: Yes Smoking Status: Current every day smoker Does the pt drink ETOH?: No Does the pt have substance abuse?: No - Immunizations Immunizations are current?: Yes - POLST Patient has POLST: No PD ED PE NORMAL - Vitals Vital signs reviewed: Yes - General General: Alert and oriented X 3, Well developed/nourished, Other (appears uncomofortable and is lying with his jacket over his face to protect from light. ) - HEENT HEENT: Atraumatic, PERRL, EOMI (light sensitive. ) - Neck Neck: Supple, no meningeal sign, No adenopathy - Cardiac Cardiac: RRR, No murmur - Respiratory Respiratory: Clear bilaterally - Derm Derm: Normal color, Warm and dry - Extremities Extremities: Normal ROM s pain - Neuro Neuro: Alert and oriented X 3, No motor deficit, No sensory deficit Eye Opening: Spontaneous Motor: Obeys Commands Verbal: Oriented GCS Score: 15 Results - Vitals Vitals: Vital Signs - 24 hr 02/13/22 02/13/22 02/13/22 08:38 12:00 12:41 Temperature 36.8 C Heart Rate 57 L 50 L 75 Respiratory 18 16 18 Rate Blood Pressure 125/73 108/73 102/67 O2 Saturation 98 96 100 Oxygen O2 Source Room air PD MEDICAL DECISION MAKING - ED course Complexity details: re-evaluated patient (he is feeling much better with migraine directed meds. In discussion with pt, as he is getting migraines more commonly, he is interested in adding preventive daily meds as well. UpToDate suggests several options, with Elavil being a common first med. ), considered differential (similar to prior migraines and has been to eR periodically for same. No red flags. ), d/w patient Departure - Departure Disposition: 01 Home, Self Care Clinical Impression: Migraine Qualifiers: Migraine type: without aura Status migrainosus presence: with status migrainos us Intractability: not intractable Qualified Code(s): G43.001 - Migraine without aura, not intractable, with status migrainosus Condition: Stable Record reviewed to determine appropriate education?: Yes Follow-Up: MARISSA POWERS MD [Primary Care Provider] - Prescriptions: Amitriptyline [Elavil] 25 mg PO HS 30 Days #30 tablet Ondansetron Odt [Zofran] 4 mg TL Q6H PRN #10 tablet PRN Reason: Nausea / Vomiting Comments: Stay well-hydrated. Tylenol ibuprofen if needed for residual headache today. Rest for this afternoon. Since you have having frequent enough headaches/migraines, it can be reasonable to try a preventative medication daily to reduce the number of migraines that you get. We can start with a commonly used 1 called amitriptyline at a low dose of 25 mg nightly. Take this daily over the next month and see if you have less common migraines. Follow-up with your primary care to see if this needs increasing or adjusting or changing over the next after you have tried it for 3 to 4 weeks. For your migraines that do develop, continue with the sumatriptan. You can combine it with ondansetron to help with nausea and add ibuprofen if needed as well. I sent prescriptions to [facility] in [place]. Forms: Activity restrictions Discharge Date/Time: 02/13/22 12:41
[2022-02-13] MEDS ORDERED: SODIUM CHLORIDE 0.9% 1,000 ML IV STA (11:09)
[2022-02-13] MEDS ORDERED: diphenhydrAMINE INJ 50 MG/ML VIAL IVP STA (11:09)
[2022-02-13] MEDS ORDERED: DROPERIDOL 5 MG/2 ML VIAL IVP STA (11:09)
[2022-02-13] MEDS ORDERED: KETOROLAC 15 MG/ML VIAL IVP STA (11:09)
[2022-02-13 12:42] VITALS: BP 102/67
== END 2022-02-13 12:41 | disposition home or self-care (01) ==
LOC: ED 08:27
DX: G43.001 Migraine without aura, not intractable, with status migrainosus (principal); F17.200 Nicotine dependence, unspecified, uncomplicated
CPT/HCPCS: 96374; 96375; 99283; 99284; J1200

== ENCOUNTER 2023-01-30 08:18 | Emergency (ER) | payer OTHER ==
[2023-01-30 08:39] VITALS: BP 126/72; O2SAT 97
== END 2023-01-30 09:43 | disposition left against medical advice (07) ==
LOC: ED 08:18
DX: Z53.21 Procedure and treatment not carried out due to patient leaving prior to being seen by health care provider (principal)